=== PATIENT | female | born 1930 | race Caucasian/White ===

== ENCOUNTER 2016-10-01 10:43 | Outpatient (CLI) | payer MEDICARE, BC ==
[2016-06-26 17:33] VITALS: O2SAT 95
== END 2016-10-01 10:44 | disposition home or self-care (01) | DRG 554 ==
LOC: CONVCARE 10:43
PROVIDERS: ATTEND Orthopaedic Surgery
DX: M17.12 Unilateral primary osteoarthritis, left knee (principal)
CPT/HCPCS: 73562

== ENCOUNTER 2017-06-03 10:41 | Outpatient (CLI) | payer MEDICARE, BC ==
[2016-06-26 17:33] VITALS: O2SAT 95
== END 2017-06-03 10:42 | disposition home or self-care (01) | DRG 558 ==
LOC: CONVCARE 10:41
PROVIDERS: ATTEND Orthopaedic Surgery
DX: M75.42 Impingement syndrome of left shoulder (principal); M17.12 Unilateral primary osteoarthritis, left knee
CPT/HCPCS: 73030